=== PATIENT | female | born 1950 | race Caucasian/White ===

== ENCOUNTER 2017-08-03 17:47 | Emergency (ER) | payer MEDICARE ==
[~2017-08-03] VITALS: Ht 170.2 cm; Wt 65.8 kg
--- NOTE | 2017-08-03 19:30 | Diagnostic Imaging Report ---
RIGHT KNEE X-RAY - 3 VIEWS HISTORY: \S\FALL, EDEMA, BRUISING \S\Y COMPARISON: None available. FINDINGS: Bones: No acute displaced fracture. Diffuse deformity of the patella may be due to remote trauma. Mild deformity of the lateral tibial plateau related to prior trauma. Superimposed cortical breakthrough concerning for acute on chronic fracture. Osseous alignment is within normal limits. Joints: Moderate tricompartmental degenerative changes. Diffuse deformity of the patella may be due to remote trauma. Soft tissues: Moderate suprapatellar effusion. IMPRESSION: Possible acute on chronic fracture of the lateral tibial plateau. Correlate with point of tenderness and recommend orthopedic consultation. Moderate joint effusion. Signed by: Dr. Lexi Simmons M.D. on 08/03/2017 7:26 PM
[2017-08-03] MEDS ORDERED: HYDROCODONE/APAP 5MG-325MG TAB ONE (21:43)
[2017-08-03] MEDS ORDERED: HYDROCODONE/APAP 5MG-325MG TAB PO ONE (22:00)
== END 2017-08-03 22:11 | disposition home or self-care (01) ==
LOC: ER 17:47
DX: S80.01XA Contusion of right knee, initial encounter (principal); S80.211A Abrasion, right knee, initial encounter; M25.561 Pain in right knee; M25.461 Effusion, right knee; M25.511 Pain in right shoulder; W10.8XXA Fall (on) (from) other stairs and steps, initial encounter; Y93.01 Activity, walking, marching and hiking; Y92.008 Other place in unspecified non-institutional (private) residence as the place of occurrence of the external cause
CPT/HCPCS: 99282

== ENCOUNTER → 2017-08-11 | Outpatient (CLI) | payer MEDICARE ==
--- NOTE | 2017-08-11 15:19 | Diagnostic Imaging Report ---
CT scan of the RIGHT KNEE, WITHOUT injected contrast. TECHNIQUE: Standard departmental protocols were used. Sagittal and coronal reformatted images were obtained. HISTORY: Fracture, fall, "knee cap" COMPARISON: Right knee radiographs August 03, 2017 FINDINGS: Bone: Comminuted intra-articular fracture involving the inferior patella. Joint: Moderate hyperdense effusion, compatible with hemarthrosis. Moderate medial and lateral compartment degenerative changes. Soft Tissues: Moderate soft tissue swelling, most notably superficial to the patella. Scattered atherosclerotic vascular calcifications. IMPRESSION: Subacute, comminuted, intra-articular fracture of the patella. Signed by: Dr. Raul Morales D.O., M.M.M. on 08/11/2017 3:15 PM
== END ==
LOC: CT 09:29
PROVIDERS: ATTEND Specialist
DX: S82.034A Nondisplaced transverse fracture of right patella, initial encounter for closed fracture (principal); S82.124A Nondisplaced fracture of lateral condyle of right tibia, initial encounter for closed fracture

== ENCOUNTER 2017-10-14 08:55 | Outpatient (RCR) | payer MEDICARE | END 2017-10-15 | LOC: PT 08:55 | PROVIDERS: ATTEND Specialist | DX: S82.041D Displaced comminuted fracture of right patella, subsequent encounter for closed fracture with routine healing (principal); M25.561 Pain in right knee; M62.81 Muscle weakness (generalized) | CPT/HCPCS: 97110 ×3; 97139; 97161; G8978; G8979 ×2; G8980 ==